=== PATIENT | female | born 1950 | race Caucasian/White ===

== ENCOUNTER 2019-07-16 09:59 | Observation (INO) | payer MEDICARE, OTHER ==
[~2019-07-16] VITALS: Ht 154.9 cm; Wt 79.4 kg
[2019-07-16] MEDS ORDERED: ASPIRIN 325 MG TABLET ONE ×2 (10:11→11:36)
[2019-07-16 10:21] LABS: BASOPHILS % (AUTO) 1.1 % (0.0-5.0); EOSINOPHILS % (AUTO) 0.9 % (0.0-8.0); HEMATOCRIT 41.5 % (36-48); LYMPHOCYTES % (AUTO) 23.8 % (21.0-51.0); MEAN CORPUSCULAR HEMOGLOBIN 28.2 pg (27.0-33.0); MEAN CORPUSCULAR VOLUME 85.3 fL (79-99); NEUTROPHILS % (AUTO) 69.2 % (40.0-77.0); PLATELET COUNT (AUTO) 225 K/uL (130-400); RED BLOOD CELL COUNT(AUTO) 4.86 MIL/uL (4.00-5.50); RED CELL DISTRIBUTION WIDTH 14.1 % (11.0-15.5); WHITE BLOOD COUNT (AUTO) 9.9 K/uL (4.8-10.8)
[2019-07-16 10:28] LABS: CREATININE 0.9 mg/dL (0.5-1.5); POTASSIUM 4.2 mmol/L (3.5-5.1)
[2019-07-16 10:29] LABS: INR 0.91 (0.85-1.15); PARTIAL THROMBOPLASTIN TIME 26.6 SEC (26.3-35.5); PROTHROMBIN TIME 9.6 SEC (9.6-11.6)
[2019-07-16 10:32] LABS: ALBUMIN 3.6 g/dL (3.5-5.0); BILIRUBIN,TOTAL 0.4 mg/dL (0.2-1.0); TOTAL PROTEIN, SERUM 7.7 g/dL (6.0-8.3)
[2019-07-16 11:04] LABS: APPEARANCE,URINE Clear (CLEAR); BILIRUBIN,URINE Negative (NEGATIVE); COLOR,URINE Yellow (YELLOW); GLUCOSE, URINE (UA) Negative (NEGATIVE); KETONES,URINE Negative (NEGATIVE); LEUKOCYTE ESTERASE ,URINE Negative (NEGATIVE); NITRATE,URINE Negative (NEGATIVE); OCCULT BLOOD,URINE Negative (NEGATIVE); PROTEIN,URINE Negative (NEGATIVE); UROBILINOGEN,URINE 0.2 mg/dL (0.2-1.0)
[2019-07-16] MEDS: SODIUM CHLORIDE 0.9% 1000ML 1,000 ML IV SCH (12:16)
[2019-07-16] MEDS ORDERED: NITROGLYCERIN 0.4 MG SL TAB SL PRN (12:30)
[2019-07-16] MEDS ORDERED: ONDANSETRON HCL 4 MG/2 ML VIAL IV PRN (12:30)
[2019-07-16] MEDS ORDERED: DiphenhydrAMINE HCL 50 MG/ML VIAL IV PRN (12:30)
[2019-07-16] MEDS ORDERED: DEXTROSE 50%-WATER 50 ML DISP.SYRIN IV PRN (12:30)
[2019-07-16] MEDS ORDERED: LACTULOSE 20 GM/30 ML UDCUP PO PRN (12:30)
[2019-07-16] MEDS ORDERED: MAG HYDROX/AL HYDROX/SIMETH ES 30 ML SUSP UDCUP PO PRN (12:30)
[2019-07-16] MEDS ORDERED: GUAIFENESIN-DM 200/20 MG 10 ML PO PRN (12:30)
[2019-07-16] MEDS ORDERED: DIPHENHYDRAMINE HCL 25 MG CAPSULE PO PRN (12:30)
[2019-07-16] MEDS ORDERED: ACETAMINOPHEN 325 MG TAB PO PRN (12:30)
[2019-07-16] MEDS ORDERED: GLUCAGON 1MG KIT 1 MG ML IM PRN (12:30)
[2019-07-16 13:20] VITALS: BP 147/79
[2019-07-16 16:00] VITALS: BP 121/58
[2019-07-16] MEDS: INSULIN HUMULIN R 100 UNIT/ML 3ML SQ SCH ×2 (16:30→21:00)
[2019-07-16 20:00] VITALS: BP 132/69
[2019-07-16] MEDS: METOPROLOL TARTRATE 25 MG TAB PO SCH (21:36)
[2019-07-16] MEDS: FAMOTIDINE 20MG TAB 20 MG TAB PO SCH (21:36)
[2019-07-16] MEDS: ACETAMINOPHEN 325 MG TAB PO PRN (21:41)
[2019-07-16] MEDS ORDERED: LISI-613 PO (21:46)
[2019-07-16] MEDS ORDERED: LOVA40TA2 PO (21:46)
[2019-07-16] MEDS ORDERED: SITA100T12 PO (21:49)
[2019-07-16] MEDS ORDERED: GLIP5TAB11 PO (21:49)
[2019-07-16] MEDS ORDERED: ESCI20TA36 PO (21:49)
[2019-07-16] MEDS ORDERED: ACET-2743 PO (21:52)
[2019-07-16] MEDS ORDERED: ASPI-1012 PO (21:52)
[2019-07-16 23:41] VITALS: BP 134/73
[2019-07-17] MEDS: SODIUM CHLORIDE 0.9% 1000ML 1,000 ML IV SCH ×2 (00:56→09:23)
[2019-07-17 04:00] VITALS: BP 123/69
[2019-07-17] MEDS: ACETAMINOPHEN 325 MG TAB PO PRN ×2 (04:13→13:22)
[2019-07-17 04:35] LABS: HEMATOCRIT 36.2 % (36-48); LYMPHOCYTES % (AUTO) 36.9 % (21.0-51.0); MEAN CORPUSCULAR HEMOGLOBIN 28.6 pg (27.0-33.0); MEAN CORPUSCULAR HGB CONC 33.2 g/dL (32.0-36.0); MEAN CORPUSCULAR VOLUME 86.2 fL (79-99); MONOCYTES % (AUTO) 6.8 % (3.0-13.0); NEUTROPHILS % (AUTO) 53.3 % (40.0-77.0); PLATELET COUNT (AUTO) 180 K/uL (130-400); RED CELL DISTRIBUTION WIDTH 14.1 % (11.0-15.5); WHITE BLOOD COUNT (AUTO) 7.5 K/uL (4.8-10.8)
[2019-07-17 05:08] LABS: ALBUMIN 3.1 g/dL (3.5-5.0); BILIRUBIN,TOTAL 0.4 mg/dL (0.2-1.0); CREATININE 0.9 mg/dL (0.5-1.5); POTASSIUM 4.3 mmol/L (3.5-5.1); THYROID STIMULATING HORMONE 3.52 uIU/mL (0.36-3.74); TOTAL PROTEIN, SERUM 6.3 g/dL (6.0-8.3)
[2019-07-17 05:09] LABS: HEMOGLOBIN A1C 6.1 % (4.0-6.0)
[2019-07-17] MEDS: INSULIN HUMULIN R 100 UNIT/ML 3ML SQ SCH ×3 (06:04→16:15)
[2019-07-17 08:00] VITALS: BP 122/66
[2019-07-17] MEDS ORDERED: GLIPIZIDE 5 MG TABLET PO SCH (09:00)
[2019-07-17] MEDS ORDERED: ENOXAPARIN SODIUM 30 MG/0.3 ML SQ SCH (09:00)
[2019-07-17] MEDS ORDERED: ASPIRIN 325 MG TABLET PO SCH (09:00)
[2019-07-17] MEDS: METOPROLOL TARTRATE 25 MG TAB PO SCH (09:19)
[2019-07-17] MEDS: FAMOTIDINE 20MG TAB 20 MG TAB PO SCH (09:19)
[2019-07-17 09:28] LABS: CREATINE KINASE, TOTAL 77 U/L (21-232); MYOGLOBIN 38 ng/mL (10-92); TROPONIN I < 0.04 ng/mL (0.00-0.06)
[2019-07-17 12:00] VITALS: BP 126/70
--- NOTE | 2019-07-17 13:43 | NUR ---
DCP CM met with pt discussed dc plans. Pt is independent prior to admission, lives at home with spouse. Denies any equipments/services. Feels safe to go back home, still drives, spouse able to assist with transportation and needs as necessary. DC plan to home once stable. CM to cont to follow up. Addendum: 07/17/19 at 1344 by HATTIE CAMEJO LVN CM Amended: Links added.
[2019-07-17 14:38] LABS: CREATINE KINASE, TOTAL 80 U/L (21-232); MYOGLOBIN 31 ng/mL (10-92); TROPONIN I < 0.04 ng/mL (0.00-0.06)
[2019-07-17 16:00] VITALS: BP 115/58
--- NOTE | 2019-07-17 18:22 | NUR ---
PATIENT DISCHARGE PATIENT DISCHARGE, IV DISCONTINUED, CATHLON INTACT, BLEEDING CONTROLLED, PATIENT TOLERATED WITHOUT INCIDENT. TELE REMOVED AND RETURNED.
[2019-07-17] MEDS ORDERED: LISINOPRIL 20 MG TABLET PO SCH (21:00)
[2019-07-17] MEDS ORDERED: LINAGLIPTIN 5 MG TABLET PO SCH (21:00)
[2019-07-17] MEDS ORDERED: CITALOPRAM 20 MG TABLET PO SCH (21:00)
[2019-07-17] MEDS ORDERED: ATORVASTATIN CALCIUM 10 MG TABLET PO SCH (21:00)
== END 2019-07-17 18:55 | disposition home or self-care (01) ==
LOC: EDH 09:59 → EDHIP 12:16 → 3AH 13:06
PROVIDERS: ADMIT Family Medicine; ATTEND Family Medicine
DX: R07.89 Other chest pain (principal); E11.65 Type 2 diabetes mellitus with hyperglycemia; I10 Essential (primary) hypertension; R94.31 Abnormal electrocardiogram [ECG] [EKG]; Z79.84 Long term (current) use of oral hypoglycemic drugs; Z79.82 Long term (current) use of aspirin; Z79.899 Other long term (current) drug therapy; Z88.0 Allergy status to penicillin
CPT/HCPCS: 36415 ×2; 71045; 80053 ×2; 81003; 82550 ×3; 82948 ×4; 83036; 83874 ×2; 84443; 84484 ×5; 85025 ×2; 85610; 85730; 93005 ×3; 94760; 96360; 96361 ×2; 96372; 99284; A4606; G0378 ×31; J1650; J7030